=== PATIENT | female | born 1945 | race Caucasian/White ===

== ENCOUNTER → 2016-08-27 | Day surgery (SDC) | payer MEDICARE ==
[~2016-08-27] MED LIST: BUPIVACAINE HCL PF 0.5% 10 ML VIAL ONE; KETOROLAC TROMETHAMINE 30 MG/ML (IVP) VIAL IV PUSH ONE; LACTATED RINGER'S 1000 ML INJ 1,000 ML ONE; MIDAZOLAM HCL 2 MG/2 ML VIAL ONE; ONDANSETRON HCL 4 MG/2 ML VIAL IV PUSH ONE; PROPOFOL 200 MG/20 ML AMP IV ONE; ceFAZolin INJ 1,000 MG VIAL ONE
--- NOTE | 2016-08-27 16:23 | PD.OP ---
cc: Chiki Paniagua Jr., MD Operative Report Date of Surgery: Aug 27, 2016 Preoperative Diagnosis: Left trigger thumb Postoperative Diagnosis: Same Procedure: Left thumb A1 daysi release Anesthesia: Gen. Surgeon: Chiki Paniagua Setup Technician(s): Staff Resident Surgeon: None Operation and Findings: Patient was seen and evaluated preoperatively and found to have a debilitating and painful left trigger thumb that has so far failed nonoperative treatment. Informed consent was obtained after detailed discussion of risk and benefits including bleeding, infection, injury to arteries, nerves, and blood vessels, weakness and numbness of hand, and tendon rupture. Informed consent was obtained. Patient received IV antibiotics prior to incision. Timeout procedure was performed. Operative extremity was prepped with alcohol followed by Hibiclens and draped usual sterile fashion. A 1 cm long vertical incision was made overlying the MP joint and carried by sharp dissection through the subcutaneous tissue. Blunt dissection was used to expose the flexor tendon and the proximal edge of the A1 daysi. Using a #11 knife blade, the A1 daysi was incised from proximal to distal. The finger was then put through a full range of motion with no triggering and I could see the hyperthrophy knot segment on the flexor tendon appear and disappear, and there was no triggering. The wound was irrigated copiously with normal saline and the incision closed with interrupted simple sutures of 2-0 nylon. A sterile pressure dressing was placed over the hand. The patient was awakened and returned to recovery in apparently good condition. POSTP-OP PLAN OF ACTIVITY Antibiotics: none Antiocoagulation: none Weight bearing status: WBAT Dressing: Do not remove until outpatient clinic visit Dispo: expected discharge TODAY home from PACU Chiki Paniagua Jr., MD Aug 27, 2016 16:23
== END | disposition home or self-care (01) ==
LOC: ESDC 07:51
PROVIDERS: ATTEND Orthopaedic Surgery
DX: M65.312 Trigger thumb, left thumb (principal)
CPT/HCPCS: 01810; 26055; J0690; J0696; J1885; J2250; J2405; J3010; J7120